=== PATIENT | female | born 1975 | race Caucasian/White ===

== ENCOUNTER 2018-04-30 21:31 | Emergency (ER) | payer SELFPAY ==
[2018-04-30 21:45] VITALS: BP 143/89
[2018-04-30] MEDS ORDERED: IBUPROFEN 800 MG TABLET PO ONE (22:49)
--- NOTE | 2018-04-30 22:51 | ER Document Report ---
ED Medical Screen (RME) - General Chief Complaint: Hand Injury Stated Complaint: FOREIGN BODY IN LEFT THUMB Time Seen by Provider: 04/30/18 22:49 Mode of Arrival: Ambulatory Information source: Patient Notes: 42-year-old female presents to ED for complaint of pain and swelling and throbbing to the left thumb. She states she was cleaning a surface with a steel wall note 1-1/2 weeks ago. She states she has had pain and swelling to the thumb since then. Patient is alert and oriented respirations regular and unlabored speaking in full sentences. She does have a history of high blood pressure ADHD ovarian cyst bilateral tubal ligation and breast reduction left ovary and tube removed and dental surgery. 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 Her left thumb is red swollen with a paronychia to the thumb. I have greeted and performed a rapid initial assessment of this patient. A comprehensive ED assessment and evaluation of the patient, analysis of test results and completion of medical decision making process will be conducted by an additional ED providers. - Related Data Allergies/Adverse Reactions: alcohol [From DermaFix] Allergy (Verified 10/04/13 18:18) hydrophilic ointment [From DermaFix] Allergy (Verified 10/04/13 18:18) pyridoxine HCl [From DermaFix] Allergy (Verified 10/04/13 18:18) Sodium Chloride [From DermaFix] Allergy (Verified 10/04/13 18:18) zinc acetate [From DermaFix] Allergy (Verified 10/04/13 18:18) Past Medical History Pulmonary Medical History: Reports: Hx Asthma Denies: Hx Tuberculosis Neurological Medical History: Reports: Hx Migraine Renal/ Medical History: Reports: Hx Kidney Stones, Hx Ovarian Cysts Past Surgical History: Reports: Hx Breast Surgery - breast reduction then complication of infection and several surgeries, Hx Gynecologic Surgery - ovrian cyst removed and uterine polyp remover, Hx Nose Surgery - Immunizations Immunizations up to date: Yes Hx Diphtheria, Pertussis, Tetanus Vaccination: Yes Physical Exam - Vital signs Vitals: Temp Pulse Resp BP Pulse Ox 98.6 F 94 15 143/89 H 99 04/30/18 21:42 04/30/18 21:42 04/30/18 21:42 04/30/18 21:42 04/30/18 21:42 Course - Vital Signs Vital signs: Temp Pulse Resp BP Pulse Ox 98.6 F 94 15 143/89 H 99 04/30/18 21:42 04/30/18 21:42 04/30/18 21:42 04/30/18 21:42 04/30/18 21:42
--- NOTE | 2018-04-30 23:41 | ER Document Report ---
Doctor's Note Notes: 04/30/18 23:39 Patient stated she could not wait any longer for the ibuprofen and I&D to the abscess to her thumb. She states that she would go home take some ibuprofen and go somewhere tomorrow to get her finger treated. She states there is too many people here and is taken to long to get anything done tonight. I have explained to patient multiple times that it is very important that this abscess gets opened and drained. She states she cannot wait any longer for some ibuprofen and is good to go home and go to sleep. She states she is work 12 hours today and she cannot wait any longer.
--- NOTE | 2018-05-01 00:04 | RADIOLOGY REPORT (SQ) ---
CLINICAL HISTORY: pain swelling possible foreign body thumb COMPARISON: None. TECHNIQUE: XR FINGERS 04/30/2018 10:49 PM [employer] FINDINGS: There is no fracture. Joint spaces are preserved. Soft tissues are unremarkable. IMPRESSION: No radiopaque foreign body.
== END 2018-04-30 23:56 | disposition left against medical advice (07) ==
LOC: ER 21:31
DX: Z53.21 Procedure and treatment not carried out due to patient leaving prior to being seen by health care provider (principal); S60.352A Superficial foreign body of left thumb, initial encounter; M79.89 Other specified soft tissue disorders; M79.645 Pain in left finger(s); X58.XXXA Exposure to other specified factors, initial encounter; F17.210 Nicotine dependence, cigarettes, uncomplicated; J45.909 Unspecified asthma, uncomplicated
CPT/HCPCS: 99281

== ENCOUNTER 2018-05-05 03:02 | Emergency (ER) | payer SELFPAY ==
[2018-05-05 03:56] VITALS: BP 154/86
[2018-05-05] MEDS ORDERED: HYDROCODONE/ACETAMINOPHEN 5-325 MG TABLET PO ONE (07:12)
[2018-05-05] MEDS ORDERED: LIDOCAINE 1% INJ-PF (10 MG/ML) 30 ML SDV INJ ONE (07:12)
--- NOTE | 2018-05-05 07:24 | ER Document Report ---
HPI - HPI Time Seen by Provider: 05/05/18 07:08 Pain Level: 5 Notes: Patient is a 42-year-old female with no significant past medical history presents emergency department complaining of infection to her left thumb near the lateral nail border over the last 1-1/2-2 weeks. Patient is unsure if there is a foreign body. Patient states that she did try to cut it open herself the other day without success. Patient states that she was here about 5 days ago and left after getting an x-ray performed before being evaluated because of her prolonged stay as it was busy in the emergency department. No other concerns or complaints. She has not noticed any red streaking or purulent discharge. Denies any headache, fever, URI, sore throat, chest pain, palpitations, syncope, cough, shortness of breath, wheeze, dyspnea, abdominal pain, nausea/vomiting/diarrhea, urinary retention, dysuria, hematuria, numbness/tingling, muscle paralysis/weakness, or rash. - ROS Systems Reviewed and Negative: Yes All other systems reviewed and negative - REPRODUCTIVE Reproductive: DENIES: : - MUSCULOSKELETAL Musculoskeletal: REPORTS: Extremity pain - left thumb Past Medical History - Social History Smoking Status: Unknown if Ever Smoked Family History: DM, Hyperlipidemia, Hypertension, Malignancy, Thyroid Disfunction Patient has suicidal ideation: No Patient has homicidal ideation: No Pulmonary Medical History: Reports: Hx Asthma Denies: Hx Tuberculosis Neurological Medical History: Reports: Hx Migraine Renal/ Medical History: Reports: Hx Kidney Stones, Hx Ovarian Cysts. Denies: Hx Peritoneal Dialysis Past Surgical History: Reports: Hx Breast Surgery - breast reduction then complication of infection and several surgeries, Hx Gynecologic Surgery - ovrian cyst removed and uterine polyp remover, Hx Nose Surgery - Immunizations Immunizations up to date: Yes Hx Diphtheria, Pertussis, Tetanus Vaccination: Yes Hx Pneumococcal Vaccination: 02/23/13 Vertical Provider Document - CONSTITUTIONAL Agree With Documented VS: Yes Notes: PHYSICAL EXAMINATION: GENERAL: Well-appearing, well-nourished and in no acute distress. LUNGS: Breath sounds clear to auscultation bilaterally and equal. No wheezes rales or rhonchi. HEART: Regular rate and rhythm without murmurs, rubs, gallops. Musculoskeletal: Left thumb: FROM to passive/active. Strength 5+/5. N/V intact distal. Extremities: No cyanosis, clubbing, or edema b/l. Peripheral pulses 2+. Capillary refill less than 3 seconds. NEUROLOGICAL: Normal speech, normal gait. Normal sensory, motor exams PSYCH: Normal mood, normal affect. SKIN: + mild paronychia to the left lateral nail border. No felon. + tenderness associated. No streaks or purulence. - INFECTION CONTROL TRAVEL OUTSIDE OF THE [place] IN LAST 30 DAYS: No Course - Re-evaluation Re-evalutation: 05/05/18 07:35 Patient is an afebrile, well-hydrated 42-year-old female who presents emergency department with a paronychia to her left thumb. Vitals are acceptable. PE is otherwise unremarkable for any neurovascular compromise, obvious tendon/leg rupture, obvious fracture/dislocation, septic joint, retained radiopaque foreign body. Incision and drainage was performed successfully without any complications. Patient tolerated procedure well. Wound dressing was placed and wound instructions reviewed. No labs or imaging warranted at this time aside from the wound culture that was obtained. I will place her on Keflex and Bactrim. Recheck with your PCM in 2-3 days. Return to the ED with any other worsening/concerning symptoms as reviewed. Patient is in agreement. - Vital Signs Vital signs: Temp Pulse Resp BP Pulse Ox 97.5 F 84 14 154/86 H 84 L 05/05/18 03:51 05/05/18 03:51 05/05/18 03:51 05/05/18 03:51 05/05/18 03:51 Procedures - Incision and Drainage Left Thumb Time completed: 07:35 Type: Simple Anesthetic type: 1% Lidocaine mL's of anesthetic: 6 Blade size: 11 I&D procedure: Sterile dressing applied, Other - Chlorhexidine/saline Incision Method: Incision made by scalpel Amount/type of drainage: scant purulent Discharge - Discharge Clinical Impression: Paronychia of left thumb Condition: Stable Disposition: HOME, SELF-CARE Instructions: Paronychia ([facility]) Additional Instructions: Do not shower or bathe for 24 hours. After 24 hours you may shower but no submersion of the wound under water unless it is an epsom salt soak. Keep the original dressing on the wound for 24 hours unless the drainage soaks through. Change the dressing daily thereafter and use a small amount of triple antibiotic ointment over the open wound. See your PCM in 2-3 days for recheck. Monitor for any signs of worsening pain or redness, streaks, and/or fever. Return to the ED if noticing any of the above symptoms or as needed. Take medications as directed. Prescriptions: Cephalexin Monohydrate [Keflex 500 mg Capsule] 500 mg PO TID #30 capsule Sulfamethoxazole/Trimethoprim [Bactrim Ds Tablet] 1 each PO BID #20 tablet Forms: Return to Work, Elevated Blood Pressure Referrals: [facility] [Provider Group] - Follow up as needed
[2018-05-05] MEDS ORDERED: HYDROCODONE/ACETAMINOPHEN 5-325 MG (6 TAB/ER DISP) PO PRN (08:05)
== END 2018-05-05 08:47 | disposition home or self-care (01) ==
LOC: ER 03:02
PROC: 0H9GXZZ Drainage of Left Hand Skin, External Approach (ICD-10-PCS; principal; 2018-05-05)
DX: L03.012 Cellulitis of left finger (principal); M79.645 Pain in left finger(s); J45.909 Unspecified asthma, uncomplicated
CPT/HCPCS: 99283; 87070; 87205; 87075; 87077; 10060; J3490

== ENCOUNTER 2018-08-01 14:16 | Emergency (ER) | payer SELFPAY ==
[2018-08-01] MEDS ORDERED: IPRATROPIUM/ALBUTEROL 0.5-2.5 MG/3 ML AMPUL NEB ONE (15:16)
--- NOTE | 2018-08-01 15:19 | ER Document Report ---
ED Medical Screen (RME) - General Chief Complaint: Chest Pain Stated Complaint: CHEST PAIN Time Seen by Provider: 08/01/18 14:21 Notes: 42-year-old female coming in with left-sided chest pain, significant productive cough and shortness of breath with occasional blood in the sputum. Not running a fever. History of reactive airway disease, hypertension, extensive smoking history. We will get baseline cardiac work-up but also give some DuoNeb treatments as this could be bronchitis or an early pneumonia. She is not tachycardic or hypoxic and her calves are not swollen or tender. Low probability of PE. I have treated and performed a rapid initial assessment of this patient. A comprehensive ED assessment and evaluation of the patient, analysis of test results and completion of medical decision making process will be conducted by additional ED providers. PHYSICAL EXAMINATION: GENERAL: Well-appearing, well-nourished and in no acute distress. A&Ox4. Answers questions appropriately. LUNGS: Diminished breath sounds bilaterally HEART: Regular rate and rhythm without murmurs, rubs, gallops. ABDOMEN: Soft, nondistended abdomen. Extremities: No cyanosis, clubbing, or edema b/l. NEUROLOGICAL: Normal speech, normal gait. PSYCH: Normal mood, normal affect. TRAVEL OUTSIDE OF THE [place] IN LAST 30 DAYS: No - Related Data Allergies/Adverse Reactions: alcohol [From DermaFix] Allergy (Verified 08/01/18 14:17) hydrophilic ointment [From DermaFix] Allergy (Verified 08/01/18 14:17) pyridoxine HCl [From DermaFix] Allergy (Verified 08/01/18 14:17) Sodium Chloride [From DermaFix] Allergy (Verified 08/01/18 14:17) zinc acetate [From DermaFix] Allergy (Verified 08/01/18 14:17) Past Medical History Pulmonary Medical History: Reports: Hx Asthma Denies: Hx Tuberculosis Neurological Medical History: Reports: Hx Migraine Renal/ Medical History: Reports: Hx Kidney Stones, Hx Ovarian Cysts. Denies: Hx Peritoneal Dialysis Past Surgical History: Reports: Hx Breast Surgery - breast reduction then complication of infection and several surgeries, Hx Gynecologic Surgery - ovrian cyst removed and uterine polyp remover, Hx Nose Surgery - Immunizations Immunizations up to date: Yes Hx Diphtheria, Pertussis, Tetanus Vaccination: Yes Physical Exam - Vital signs Vitals: Temp Pulse Resp BP Pulse Ox 98.6 F 79 18 149/82 H 98 08/01/18 14:32 08/01/18 14:32 08/01/18 14:32 08/01/18 14:32 08/01/18 14:32 Course - Vital Signs Vital signs: Temp Pulse Resp BP Pulse Ox 98.6 F 79 18 149/82 H 98 08/01/18 14:32 08/01/18 14:32 08/01/18 14:32 08/01/18 14:32 08/01/18 14:32
[2018-08-01 15:56] LABS: ABSOLUTE BASOPHILS # (AUTO) 0.1 10^3/uL (0.0-0.2); ABSOLUTE EOSINOPHILS # (AUTO) 0.3 10^3/uL (0.0-0.6); ABSOLUTE LYMPHOCYTES (AUTO) 1.8 10^3/uL (0.5-4.7); ABSOLUTE MONOCYTES (AUTO) 0.5 10^3/uL (0.1-1.4); ABSOLUTE NEUT (AUTO) 6.8 10^3/uL (1.7-8.2); BASOPHILS % (AUTO) 0.8 % (0-2); EOSINOPHILS % (AUTO) 3.6 % (0-6); HEMATOCRIT 40.8 % (36.0-47.0); HEMOGLOBIN 13.4 g/dL (12.0-15.5); LYMPHOCYTES % (AUTO) 18.6 % (13-45); MEAN CORPUSCULAR HEMOGLOBIN 28.3 pg (27.0-33.4); MEAN CORPUSCULAR HGB CONC 32.9 g/dL (32.0-36.0); MEAN CORPUSCULAR VOLUME 86 fl (80-97); PLATELET COUNT 199 10^3/uL (150-450); RED BLOOD COUNT 4.74 10^6/uL (3.72-5.28); RED CELL DISTRIBUTION WIDTH 15.9 % (11.5-14.0); TOTAL CELLS COUNTED % (AUTO) 100 %; WHITE BLOOD COUNT 9.4 10^3/uL (4.0-10.5)
[2018-08-01 16:07] LABS: ALANINE AMINOTRANSFERASE 34 U/L (9-52); ALBUMIN 4.1 g/dL (3.5-5.0); ALKALINE PHOSPHATASE 58 U/L (38-126); ANION GAP 11 (5-19); ASPARTATE AMINO TRANSFERASE 22 U/L (14-36); BILIRUBIN,DIRECT 0.3 mg/dL (0.0-0.4); BILIRUBIN,TOTAL 0.3 mg/dL (0.2-1.3); BLOOD UREA NITROGEN 12 mg/dL (7-20); CALCIUM 9.6 mg/dL (8.4-10.2); CARBON DIOXIDE 26 mmol/L (22-30); CHLORIDE 106 mmol/L (98-107); GLUCOSE 102 mg/dL (75-110); POTASSIUM 4.2 mmol/L (3.6-5.0); SODIUM 142.6 mmol/L (137-145); TOTAL PROTEIN 6.8 g/dL (6.3-8.2)
--- NOTE | 2018-08-01 17:24 | RADIOLOGY REPORT (SQ) ---
EXAM DESCRIPTION: CHEST 2 VIEWS COMPLETED DATE/TIME: 08/01/2018 4:40 pm REASON FOR STUDY: COUGH/CP COMPARISON: None. EXAM PARAMETERS: NUMBER OF VIEWS: two views TECHNIQUE: Digital Frontal and Lateral radiographic views of the chest acquired. RADIATION DOSE: NA LIMITATIONS: none FINDINGS: LUNGS AND PLEURA: No opacities, masses or pneumothorax. No pleural effusion. MEDIASTINUM AND HILAR STRUCTURES: No masses or contour abnormalities. HEART AND VASCULAR STRUCTURES: Heart normal size. No evidence for failure. BONES: No acute findings. HARDWARE: None in the chest. OTHER: No other significant finding. IMPRESSION: NO ACUTE RADIOGRAPHIC FINDING IN THE CHEST. TECHNICAL DOCUMENTATION: JOB ID: [id number] [place]-72 2010 [employer]- All Rights Reserved Reading location - IP/workstation name: [email or web address]
--- NOTE | 2018-08-01 18:33 | ER Document Report ---
ED General - General Chief Complaint: Chest Pain Stated Complaint: CHEST PAIN Time Seen by Provider: 08/01/18 14:21 TRAVEL OUTSIDE OF THE [place] IN LAST 30 DAYS: No - HPI Notes: Patient is a 42-year-old female that presents to the emergency department for chief complaint of cough, chest tightness and hemoptysis. Patient reports 1 week of productive cough. She states everyone in her family has been coughing for the last 2 to 3 weeks. She states she has seasonal allergies and has not been on allergy medication. Patient states yesterday she started to have some blood-tinged sputum. She has had 2-3 episodes of streaking in her sputum. She reports a tightness in her chest that has been constant for the last few days as well. She has a history of requiring albuterol inhaler but has not had one recently. She denies any recent surgery, travel, immobilization, estrogen use, and lower extremity edema Past Medical History: ADHD, asthma Past Surgical History: Reviewed in chart Social History: Daily tobacco. Occasional alcohol. Denies drug use Family History: Reviewed and noncontributory for presenting illness Allergies: Reviewed, see documented allergy list. REVIEW OF SYSTEMS: CONSTITUTIONAL : No fever No chills No diaphoresis No recent illness EENT: No vision changes congestion No sore throat CARDIOVASCULAR: chest pain No palpitations RESPIRATORY: shortness of breath cough No difficulty breathing GASTROINTESTINAL: No abdominal pain No nausea No vomiting No diarrhea GENITOURINARY: No dysuria No hematuria No difficulty urinating MUSCULOSKELETAL: No back pain No leg pain No arm pain SKIN: No rashes No lesions LYMPHATIC: No swollen, enlarged glands. NEUROLOGICAL: No lightheadedness No headache No weakness No paresthesias PSYCHIATRIC: No anxiety No depression PHYSICAL EXAMINATION: Vital signs reviewed, nursing noted reviewed. GENERAL: Well-appearing, well-nourished and in no acute distress. HEAD: Atraumatic, normocephalic. EYES: Eyes appear normal, extraocular movements intact, sclera anicteric, conjunctiva are normal. ENT: nares patent, oropharynx clear without exudates. Moist mucous membranes. NECK: Normal range of motion, supple without lymphadenopathy LUNGS: Breath sounds diminished with mild bilateral wheezing to auscultation bilaterally and equal. HEART: Regular rate and rhythm without murmurs ABDOMEN: Soft, nontender, normoactive bowel sounds. No rebound, guarding, or rigidity. No masses appreciated. EXTREMITIES: Nontender, good range of motion, no pitting or edema. NEUROLOGICAL: No focal neurological deficits. Moves all extremities spontaneously Motor and sensory grossly intact on exam. PSYCH: Normal mood, normal affect. SKIN: Warm, Dry, normal turgor, no rashes or lesions noted on exposed skin - Related Data Allergies/Adverse Reactions: alcohol [From DermaFix] Allergy (Verified 08/01/18 14:17) hydrophilic ointment [From DermaFix] Allergy (Verified 08/01/18 14:17) pyridoxine HCl [From DermaFix] Allergy (Verified 08/01/18 14:17) Sodium Chloride [From DermaFix] Allergy (Verified 08/01/18 14:17) zinc acetate [From DermaFix] Allergy (Verified 08/01/18 14:17) Past Medical History - Social History Smoking Status: Current Every Day Smoker Frequency of alcohol use: None Drug Abuse: None Family History: DM, Hyperlipidemia, Hypertension, Malignancy, Thyroid Disfunction Patient has suicidal ideation: No Patient has homicidal ideation: No Pulmonary Medical History: Reports: Hx Asthma Denies: Hx Tuberculosis Neurological Medical History: Reports: Hx Migraine Renal/ Medical History: Reports: Hx Kidney Stones, Hx Ovarian Cysts. Denies: Hx Peritoneal Dialysis Past Surgical History: Reports: Hx Breast Surgery - breast reduction then complication of infection and several surgeries, Hx Gynecologic Surgery - ovrian cyst removed and uterine polyp remover, Hx Nose Surgery - Immunizations Immunizations up to date: Yes Hx Diphtheria, Pertussis, Tetanus Vaccination: Yes Hx Pneumococcal Vaccination: 02/23/13 Physical Exam - Vital signs Vitals: Temp Pulse Resp BP Pulse Ox 98.6 F 79 18 149/82 H 98 08/01/18 14:32 08/01/18 14:32 08/01/18 14:32 08/01/18 14:32 08/01/18 14:32 Course - Re-evaluation Re-evalutation: 08/01/18 18:33 Vitals reviewed. Nursing notes reviewed. Patient has an unremarkable chest x- ray and no underlying pneumonia. Lab work shows no acute anemia. She has no electrolyte derangements or renal insufficiency. Troponin is also negative. Her EKG is not suggestive of any acute ischemia. Patient describes her chest pain as a tightness consistent with her reactive airway disease. She did have significant symptomatic relief after DuoNeb ordered in triage. I am not currently suspicious for acute ACS. I did discuss the possibility of pulmonary embolism. Patient has no known risk factors but cannot be ruled out using PERC criteria because of her hemoptysis. I did offer d-dimer for further screening which patient has declined. She was informed to return to the emergency room if her hemoptysis worsens or for new concerning symptoms. She will be started on prednisone and albuterol for symptom medic management. She was counseled on smoking cessation. She is stable at discharge. Laboratory 08/01/18 08/01/18 08/01/18 15:28 15:28 15:28 WBC 9.4 RBC 4.74 Hgb 13.4 Hct 40.8 MCV 86 MCH 28.3 MCHC 32.9 RDW 15.9 H Plt Count 199 Seg Neutrophils % 72.0 Lymphocytes % 18.6 Monocytes % 5.0 Eosinophils % 3.6 Basophils % 0.8 Absolute Neutrophils 6.8 Absolute Lymphocytes 1.8 Absolute Monocytes 0.5 Absolute Eosinophils 0.3 Absolute Basophils 0.1 Sodium 142.6 Potassium 4.2 Chloride 106 Carbon Dioxide 26 Anion Gap 11 BUN 12 Creatinine 0.86 Est GFR ( Amer) > 60 Est GFR (Non-Af Amer) > 60 Glucose 102 Calcium 9.6 Total Bilirubin 0.3 Direct Bilirubin 0.3 Neonat Total Bilirubin Not Reportable Neonat Direct Bilirubin Not Reportable Neonat Indirect Bili Not Reportable AST 22 ALT 34 Alkaline Phosphatase 58 Troponin I < 0.012 Total Protein 6.8 Albumin 4.1 Chest X-Ray 08/01/18 15:16 IMPRESSION: NO ACUTE RADIOGRAPHIC FINDING IN THE CHEST. - Vital Signs Vital signs: Temp Pulse Resp BP Pulse Ox 98.6 F 79 18 149/82 H 98 08/01/18 14:32 08/01/18 14:32 08/01/18 14:32 08/01/18 14:32 08/01/18 14:32 - Laboratory Result Diagrams: 08/01/18 15:28 08/01/18 15:28 Laboratory results interpreted by me: 08/01/18 15:28 RDW 15.9 H - EKG Interpretation by Me Additional EKG results interpreted by me: 08/01/18 18:33 Interpreted by myself 1426: Normal sinus rhythm, rate 89, normal axis, no ectopy, no STEMI Discharge - Discharge Clinical Impression: Bronchitis, Hemoptysis Condition: Stable Disposition: HOME, SELF-CARE Instructions: Bronchitis With Bronchospasm (Wheezing) ([facility]), Hemoptysis ([facility]) Additional Instructions: Please return to the emergency department if you have any worsening, or concern of your symptoms. Please return to the emergency department if you develop chest pain, difficulty breathing, severe abdominal pain, or ongoing vomiting. Please follow-up with your primary care physician in 2-3 days and any other recommended physicians. If prescribed, take all medications as directed. If you have any questions or concerns do not hesitate to return the emergency department for evaluation. We cannot completely rule out a blood clot in your lungs causing you to cough up blood. If you are coughing large blood clots or more blood you should be reevaluated Prescriptions: Albuterol Sulfate [Proair HFA Inhalation Aerosol 8.5 gm MDI] 2 puff IH Q4H PRN #1 mdi PRN Reason: Prednisone [Deltasone 20 mg Tablet] 2 tab PO DAILY 5 Days tablet Forms: Smoking Cessation Education Referrals: [facility] [Provider Group] - Follow up as needed
[2018-08-01 19:19] VITALS: BP 149/89
--- NOTE | 2018-08-01 23:07 | EKG REPORT ---
SEVERITY:- NORMAL ECG - SINUS RHYTHM : Confirmed by: Tristen Harris 01-Aug-2018 23:07:26
== END 2018-08-01 19:26 | disposition home or self-care (01) ==
LOC: ER 14:16
DX: J45.909 Unspecified asthma, uncomplicated (principal); R04.2 Hemoptysis; R07.9 Chest pain, unspecified; F90.9 Attention-deficit hyperactivity disorder, unspecified type; F17.200 Nicotine dependence, unspecified, uncomplicated
CPT/HCPCS: 93005; 94640; 99284; 36415; 85025; 80053; 84484; 71046; 93010; J7620